=== PATIENT | male | born 1965 | race Caucasian/White ===

== ENCOUNTER → 2016-06-26 | Outpatient (CLI) | payer OTHER ==
--- NOTE | 2016-06-26 16:47 | DI ---
Indication: ITS.REASON: M25.562 LT KNEE PAIN PROCEDURE: MRI KNEE LEFT W/O CONTRAST: Encounter: Initial Comparison: None Technique: Multiplanar multisequence MR imaging of the left knee was performed without contrast. Findings: There is some partial tearing or fraying of the superior articular surface of the anterior horn lateral meniscus. There is a complex tear of the posterior horn medial meniscus contacting both articular surfaces. The ACL and PCL are intact. The MCL and lateral collateral ligament complex are intact. The extensor mechanism is intact. No acute fracture. Focal bone marrow edema in the anterior medial tibial plateau. The cartilage of the lateral compartment is maintained. Medial compartment cartilage shows partial-thickness loss in the femoral condyle. Patellofemoral compartment shows areas of full-thickness loss in the median ridge and lateral facet with fissuring in the medial facet. Small joint effusion. No Walter's cyst. Muscular signal intensity is within normal limits. Impression: 1. Complex medial meniscal tear. 2. Mild tearing or fraying in the anterior horn lateral meniscus. 3. Mild osteoarthritis. .
== END ==
LOC: IMA 11:29
PROVIDERS: ATTEND Physician Assistant
DX: S83.232A Complex tear of medial meniscus, current injury, left knee, initial encounter (principal); S83.282A Other tear of lateral meniscus, current injury, left knee, initial encounter; X58.XXXA Exposure to other specified factors, initial encounter; Y93.9 Activity, unspecified; Y92.9 Unspecified place or not applicable; Y99.9 Unspecified external cause status; M17.12 Unilateral primary osteoarthritis, left knee; M25.462 Effusion, left knee; M25.562 Pain in left knee